=== PATIENT | male | born 1960 | race American Indian/Alaskan Native ===

== ENCOUNTER 2018-08-17 22:59 | Inpatient (IN) | payer OTHER, SELFPAY ==
[2018-08-17] MEDS ORDERED: ASPIRIN PO ONE (23:14)
[2018-08-17 23:42] LABS: Basophils # (Auto) 0.1 K/mm3 (0.0-0.1); Basophils % (Auto) 0.7 % (0.0-1.8); Eosinophils % (Auto) 0.1 % (0.0-4.3); Hematocrit 46.5 % (35.5-45.6); Hemoglobin 15.5 gm/dl (11.8-15.2); Lymphocytes # (Auto) 1.7 K/mm3 (1.2-5.4); Lymphocytes % (Auto) 13.2 % (13.4-35.0); Mean Corpuscular HGB Conc 33 % (32-34); Mean Corpuscular Volume 93 fl (84-94); Monocytes % (Auto) 7.3 % (0.0-7.3); Platelet Count 266 K/mm3 (140-440); Red Blood Count 4.98 M/mm3 (3.65-5.03)
[2018-08-18 00:04] LABS: Calcium 9.7 mg/dL (8.4-10.2)
--- NOTE | 2018-08-18 00:07 | Emergency Department Report ---
ED Chest Pain HPI - General Chief Complaint: Chest Pain Stated Complaint: CHEST PAIN Time Seen by Provider: 08/18/18 00:01 Source: patient Mode of arrival: Ambulatory Limitations: No Limitations - History of Present Illness Initial Comments: Patient is a 57-year-old male presents emergency with complaints of chest pain that started at 10 AM this morning. Patient states the pain is becoming worse. Patient states the pain is in his left chest and nonradiating. Patient complains of diaphoresis and nausea and vomiting. Patient states the pain is 10 out of 10. Patient states the pain is better with rest and worse with exertion. MD Complaint: chest pain -: Sudden Onset: during rest Pain Location: substernal, left chest Pain Radiation: none Severity: severe Severity scale (0 -10): 10 Quality: sharp Consistency: constant Improves With: rest Worsens With: exertion re: nausea, vomting, diaphoresis, dyspnea. denies: sense of impending doom Other Symptoms: denies: cough, fever, syncope, rash, acid taste in mouth, leg swelling, palpitations, burping Treatments Prior to Arrival: aspirin Aspirin use within the Past 7 Days: (1) Yes - Related Data On Oral Contraceptives: No Allergies Allergy/AdvReac Type Severity Reaction Status Date / Time No Known Allergies Allergy Unverified 08/17/18 23:14 Heart Score - HEART Score History: Moderately suspicious EKG: Non-specific Age: 45-65 Risk factors: No known risk factors Troponin: > 3x normal limit HEART Score: 5 ED Review of Systems ROS: Stated complaint: CHEST PAIN Other details as noted in HPI Constitutional: denies: chills, fever Eyes: denies: eye pain, eye discharge, vision change ENT: denies: ear pain, throat pain Respiratory: shortness of breath. denies: cough, wheezing Cardiovascular: chest pain. denies: palpitations Endocrine: no symptoms reported Gastrointestinal: nausea, vomiting. denies: abdominal pain, diarrhea Genitourinary: denies: urgency, dysuria Musculoskeletal: denies: back pain, joint swelling, arthralgia Skin: denies: rash, lesions Neurological: denies: headache, weakness, paresthesias Psychiatric: denies: anxiety, depression Hematological/Lymphatic: denies: easy bleeding, easy bruising ED Past Medical Hx - Past Medical History Previous Medical History?: Yes Hx Hypertension: Yes - Surgical History Past Surgical History?: No - Family History Family history: no significant - Social History Smoking Status: Never Smoker Substance Use Type: None ED Physical Exam - General Limitations: No Limitations General appearance: alert, in distress - Head Head exam: Present: atraumatic, normocephalic - Eye Eye exam: Present: normal appearance, PERRL Pupils: Present: normal accommodation - ENT ENT exam: Present: mucous membranes moist - Neck Neck exam: Present: normal inspection - Respiratory Respiratory exam: Present: normal lung sounds bilaterally. Absent: respiratory distress, chest wall tenderness - Cardiovascular Cardiovascular Exam: Present: regular rate, normal rhythm. Absent: systolic murmur, diastolic murmur, rubs, gallop - GI/Abdominal GI/Abdominal exam: Present: soft, normal bowel sounds - Rectal Rectal exam: Present: deferred - Extremities Exam Extremities exam: Present: normal inspection - Back Exam Back exam: Present: normal inspection - Neurological Exam Neurological exam: Present: alert, oriented X3 - Psychiatric Psychiatric exam: Present: normal affect, normal mood - Skin Skin exam: Present: warm, dry, intact, normal color. Absent: rash ED Course Vital Signs 08/17/18 08/17/18 08/18/18 23:10 23:58 00:00 Temperature 97.9 F Pulse Rate 103 H 104 H 95 H Respiratory 20 29 H 33 H Rate Blood Pressure 167/110 O2 Sat by Pulse 99 Oximetry 08/18/18 08/18/18 08/18/18 00:25 00:30 00:45 Temperature Pulse Rate 96 H 86 87 Respiratory 14 22 20 Rate Blood Pressure 149/106 133/87 O2 Sat by Pulse Oximetry 08/18/18 08/18/18 08/18/18 01:00 01:24 01:31 Temperature Pulse Rate 88 89 107 H Respiratory 15 31 H 20 Rate Blood Pressure 131/96 149/106 149/106 O2 Sat by Pulse Oximetry 08/18/18 08/18/18 08/18/18 01:45 02:00 02:15 Temperature Pulse Rate 89 89 91 H Respiratory 39 H 13 21 Rate Blood Pressure 160/106 151/102 133/88 O2 Sat by Pulse Oximetry - Reevaluation(s) Reevaluation #1: Initial evaluation. Patient appears to be very uncomfortable. Will contact cardiology nursing home admissions director. 08/18/18 00:06 Patient will be given morphine and Lopressor 5 mg. And IV was started on the patient and have a CTA of the chest done. 08/18/18 00:20 The patient was given morphine. Patient started throwing up coffee ground vomitus noted 08/18/18 00:25 Patient still complains of chest pain. Nitroglycerin paste will be placed on the patient's chest. Patient was given another 2 mg of morphine 08/18/18 01:41 no Change in patient's symptoms. Manager Bilingual will be updated 08/18/18 01:54 - Consultations Consultation #1: I discussed case with Dr. Kapoor, medical administrator nursing home admissions director. Dr. Kapoor states the EKG is not consistent with a STEMI. Discussed the positive troponins and Dr. Kapoor recommends medical management at this time. 08/18/18 00:[address] and resistant pain with Dr. Kapoor. Dr. Kapoor he states for us to activate the STEMI team to get the cath team here. STEMI team activated. Dr. Kapoor states to start the patient on nitro drip and prepare for cath and give the patient Plavix and heparin bolus 08/18/18 01:55 Consultation #2: Hospitals consulted for admission. Hospitalist to assume care patient after the cath. 08/18/18 02:15 NIKO score - Niko Score Age > 65: (0) No Aspirin use within the Past 7 Days: (1) Yes 3 or more CAD Risk Factors: (0) No 2 or more Angina events in past 24 hrs: (1) Yes Known CAD with more than 50% Stenosis: (0) No Elevated Cardiac Markers: (1) Yes ST Deviation Greater than 0.5mm: (0) No NIKO Score: 3 ED Medical Decision Making - Lab Data Result diagrams: 08/17/18 23:24 08/17/18 23:24 - EKG Data -: EKG Interpreted by Me EKG shows normal: sinus rhythm, axis, intervals, QRS complexes, ST-T waves (ST changes secondary to LVH and repol) Rate: normal - EKG Data Interpretation: LVH - Radiology Data Radiology results: report reviewed, image reviewed interpreted by me: No acute findings on chest x-ray PROCEDURE: XR CHEST 1V AP TECHNIQUE: Chest radiograph single view. HISTORY: Chest Pain COMPARISONS: None . FINDINGS: Heart: Normal. Mediastinum/Vessels: Normal. Lungs/Pleural space: Normal. Bony thorax: No acute osseous abnormality. Life support devices: None. IMPRESSION: No acute cardiopulmonary abnormality. - Medical Decision Making She is a 57-year-old male that presents emergency room with complaints of chest pain. Patient's chest pain intractable and difficult to manage. Patient given multiple doses of medications. Patient chest pain did not respond. Cardiology consulted early and immediately upon initial evaluation. Manager Bilingual states that the EKG does not show a STEMI. After multiple consultations with the living coach and multiple medications and the patient not improving, the medical administrator decided to activate the STEMI team. Patient's initial troponin was elevated. CT negative. Chest x-ray negative. Patient's other labs were unremarkable. - Differential Diagnosis chest pain. NSTEMI. STEMI. ACS. pe Critical Care Time: Yes Critical care attestation.: If time is entered above; I have spent that time in minutes in the direct care of this critically ill patient, excluding procedure time. Critical Care Time: 65 minutes ED Disposition Clinical Impression: Intractable pain, Elevated troponin Chest pain Qualifiers: Chest pain type: unspecified Qualified Code(s): R07.9 - Chest pain, unspecified STEMI (ST elevation myocardial infarction) Qualifiers: Involved coronary artery: unspecified coronary artery Qualified Code(s): I21.3 - ST elevation (STEMI) myocardial infarction of unspecified site Nausea & vomiting Qualifiers: Vomiting type: unspecified Vomiting Intractability: non-intractable Qualified Code(s): R11.2 - Nausea with vomiting, unspecified Disposition: 09 OP ADMIT IP TO THIS HOSP Is pt being admited?: Yes Does the pt Need Aspirin: No Condition: Critical Time of Disposition: 02:44
--- NOTE | 2018-08-18 00:12 | XRay Report ---
PROCEDURE: XR CHEST 1V AP TECHNIQUE: Chest radiograph single view. HISTORY: Chest Pain COMPARISONS: None . FINDINGS: Heart: Normal. Mediastinum/Vessels: Normal. Lungs/Pleural space: Normal. Bony thorax: No acute osseous abnormality. Life support devices: None. IMPRESSION: No acute cardiopulmonary abnormality. This document is electronically signed by Priti Stevens DO., August 18 2018 12:10:15 AM ET
[2018-08-18] MEDS ORDERED: MORPHINE IV ONE ×3 (00:14→01:51)
[2018-08-18] MEDS ORDERED: LOPRESSOR IV ONE ×2 (00:20→00:28)
[2018-08-18] MEDS ORDERED: ZOFRAN ONE (00:25)
[2018-08-18] MEDS ORDERED: ZOFRAN IV ONE (00:28)
[2018-08-18] MEDS ORDERED: NITRO-BID 2% TP ONE ×2 (01:45→01:49)
--- NOTE | 2018-08-18 01:51 | Cat Scan Report ---
CT ANGIO CHEST CLINICAL INDICATION: Male, 57 years of age. cp. sob COMPARISON: Chest x-ray from yesterday. TECHNIQUE: Contiguous axial images were obtained. This CT exam was performed using one or more of th e following dose reduction techniques: automated exposure control, adjustment of the mA and/or kV acc ording to patient size, or use of iterative reconstruction technique. Additional sagittal and coronal reformatted images were obtained. IV contrast administered per institution protocol. Images are subm itted for interpretation. FINDINGS: Heart upper limits normal in size. Thoracic aorta normal in caliber. Thoracic aorta not wel l opacified for evaluation of dissection. No evidence of rupture. No pulmonary embolus. No pathologic ally enlarged intrathoracic or axillary lymph nodes. Mild subsegmental atelectasis at the dependent portions of the lungs. No dense airspace consolidation or pleural effusion. Along the inferior margin of the right minor fissure. There is a tiny subpleura l nodule measuring 9 x 4 mm in axial dimension (series 2, image 82). Visualized upper abdomen is [place] sly unremarkable. Bony thorax is grossly intact. IMPRESSION: 1. No pulmonary embolus. 2. Small subpleural nodule along the inferior margin of the right minor fissure. This may be postinfl ammatory. Follow-up chest CT in 3 months suggested to ensure stability. 3. No dense airspace consolidation or pleural effusion otherwise. This document is electronically signed by Hilario Contreras DO., August 18 2018 01:49:30 AM ET
[2018-08-18] MEDS ORDERED: TRIDIL DRIP 50MG/250ML 50 MG/250 ML BOTTLE ONE (01:59)
[2018-08-18 02:18] LABS: Creatine Kinase MB 41.8 ng/mL (0.0-4.0)
[2018-08-18] MEDS ORDERED: HEPARIN/NS 5000 UNIT/500ML(CATH LAB) 1,000 ML IR ONE (02:35)
[2018-08-18] MEDS ORDERED: CALAN ONE (02:36)
[2018-08-18] MEDS ORDERED: XYLOCAINE 2% INFILTRATI ONE (02:36)
[2018-08-18] MEDS ORDERED: NITROGLYCERIN SYRINGE 3 ML ONE (02:36)
[2018-08-18] MEDS ORDERED: NACL 0.9% 500 ML 500 ML ONE (02:41)
[2018-08-18] MEDS ORDERED: VERSED ONE (02:42)
[2018-08-18] MEDS ORDERED: SUBLIMAZE ONE (02:42)
[2018-08-18] MEDS: HEPARIN 10,000 UNITS/10 ML ONE ×2 (02:45→02:55)
[2018-08-18] MEDS ORDERED: TRIDIL DRIP 50MG/250ML 50 MG/250 ML BOTTLE IV SCH (03:00)
[2018-08-18 03:04] LABS: INR 1.04 (0.87-1.13)
[2018-08-18 03:05] LABS: Partial Thromboplastin Time 30.6 Sec. (24.2-36.6)
[2018-08-18] MEDS ORDERED: SODIUM CHLORIDE FLUSH SYRINGE 10 ML IV PRN (03:36)
[2018-08-18] MEDS ORDERED: ULTRAM PO PRN (03:36)
[2018-08-18] MEDS ORDERED: MORPHINE IV PRN (03:36)
[2018-08-18] MEDS ORDERED: TYLENOL PO PRN (03:36)
[2018-08-18] MEDS ORDERED: ZOFRAN IV PRN (03:36)
--- NOTE | 2018-08-18 03:38 | History and Physical Report ---
History of Present Illness Date of examination: 08/18/18 History of present illness: 57-year-old man with no medical history comes to the emergency room with complaints of chest pain located in the chest which she describes as sharp pain, constant, intensity 7/10, no radiation. He is taking Tums for the pain without any relief. His symptoms worsen so he came to the emergency room for evaluation. Complains of nausea and vomiting, no diaphoresis or palpitation, shortness of breath Review of systems Constitutional: no weight loss, chills, fever Ears, eyes, nose, mouth and throat: no nasal congestion, no nasal discharge, no sinus pressure, no vision change, no red eye. Neck: No neck pain or rigidity. Cardiovascular: no palpitations, chest pain Respiratory: no cough, shortness of breath Gastrointestinal: no hematochezia, abdominal pain Genitourinary : no frequency , no hematuria Musculoskeletal: no joint swelling or muscle ache Integumentary: no rash, no pruritis Neurological: no parathesias, no focal weakness Endocrine: no cold or heat intolerance, no polyuria or polydipsia Hematologic/Lymphatic: no easy bruising, no easy bleeding, no gland swelling Allergic/Immunologic: no urticaria, no angioedema. PAST MEDICAL HISTORY: None PAST SURGICAL HISTORY: None SOCIAL HISTORY: Quit alcohol, drugs, tobacco FAMILY HISTORY: Hypertension, CAD Medications and Allergies Allergies Allergy/AdvReac Type Severity Reaction Status Date / Time No Known Allergies Allergy Unverified 08/17/18 23:14 Active Meds: Active Medications Nitroglycerin/Dextrose (Tridil Drip 50mg/250ml) 50 mg in 250 mls @ 3 mls/hr IV TITR EDIN; Protocol Exam - Physical Exam Narrative exam: General Apperance: The patient lying in bed, breathing comfortable HEENT: Normocephalic, atraumatic. Pupils equally round and reactive to light, EOMI, no sclericterus or JVD or thyromegaly or nodule. , no carotid bruit, mucous membranes moist, no exudate or erythema Heart: S1-S2, regular is rhythm Lungs: Clear to auscultation bilaterally, breathing comfortable Abdomen: Positive bowel sounds, soft, nontender, nondistended, no organomegaly Extremities: No edema cyanosis clubbing Skin: no rash, nodule, warm and dry Neuro: cranial nerves 2-12 intact, speech is fluent, motor/sensory intact - Constitutional Vitals: Temp Pulse Resp BP Pulse Ox 97.9 F 91 H 21 133/88 99 08/17/18 23:10 08/18/18 02:15 08/18/18 02:15 08/18/18 02:15 08/17/18 23:10 Results - Labs CBC & Chem 7: 08/17/18 23:24 08/17/18 23:24 Labs: Abnormal lab results 08/17/18 08/17/18 08/18/18 Range/Units 23:24 23:24 01:39 WBC 13.2 H (4.5-11.0) K/mm3 Hgb 15.5 H (11.8-15.2) gm/dl Hct 46.5 H (35.5-45.6) % RDW 13.0 L (13.2-15.2) % Lymph % (Auto) 13.2 L (13.4-35.0) % [place] # 1.0 H (0.0-0.8) K/mm3 Seg Neutrophils % 78.7 H (40.0-70.0) % Seg Neutrophils # 10.4 H (1.8-7.7) K/mm3 Glucose 127 H (75-100) mg/dL Total Creatine Kinase 551 H (55-170) units/L CK-MB (CK-2) 41.8 H (0.0-4.0) ng/mL CK-MB (CK-2) Rel Index 7.5 H (0-4) Troponin T 0.455 H* 0.504 H* (0.00-0.029) ng/mL NT-Pro-B Natriuret Pep (0-900) pg/mL 08/18/18 Range/Units 01:43 WBC (4.5-11.0) K/mm3 Hgb (11.8-15.2) gm/dl Hct (35.5-45.6) % RDW (13.2-15.2) % Lymph % (Auto) (13.4-35.0) % [place] # (0.0-0.8) K/mm3 Seg Neutrophils % (40.0-70.0) % Seg Neutrophils # (1.8-7.7) K/mm3 Glucose (75-100) mg/dL Total Creatine Kinase (55-170) units/L CK-MB (CK-2) (0.0-4.0) ng/mL CK-MB (CK-2) Rel Index (0-4) Troponin T (0.00-0.029) ng/mL NT-Pro-B Natriuret Pep 1755 H (0-900) pg/mL - Imaging and Cardiology EKG: image reviewed Chest x-ray: image reviewed CT scan - chest: report reviewed Assessment and Plan Assessment STMI Plan Admit medicine Status post crime lab analyst, stent placed Continue cardiac medicine per Cardiology DVT prophylaxis, IV morphine
--- NOTE | 2018-08-18 03:44 | Consultation ---
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 Left heart cath revealed left main patent LAD mid 99% with NIKO 2 flow down to 1 ostial 80% diagonal 2 and 3 patent circumflex patent obtuse marginal 1 and obtuse marginal 2 patent RCA patent with moderate LV dysfunction and anterior wall hypokinesis EF 35-40% PCI of the LAD with a drug-eluting xience 3.0 x 33 mm postdilated with 3 5 x 15 mm 2 intravascular sounds revealed excellent result was stent was well opposed and expanded. Patient was chest pain-free at the case. Patient denies any fever or chills melena had some shortness of breath syncope or palpitations as constant pain Past History Past Medical History: denies: No medical history Past Surgical History: denies: No surgical history Social history: denies: no significant social history Family history: CAD Medications and Allergies Allergies Allergy/AdvReac Type Severity Reaction Status Date / Time No Known Allergies Allergy Unverified 08/17/18 23:14 Active Meds: Active Medications Acetaminophen (Tylenol) 650 mg PO Q4H PRN PRN Reason: Pain MILD(1-3)/Fever >100.5/BROWN Nitroglycerin/Dextrose (Tridil Drip 50mg/250ml) 50 mg in 250 mls @ 3 mls/hr IV TITR EDIN; Protocol Morphine Sulfate (Morphine) 2 mg IV Q4H PRN PRN Reason: Pain, Moderate (4-6) Ondansetron HCl (Zofran) 4 mg IV Q4H PRN PRN Reason: Nausea And Vomiting Sodium Chloride (Sodium Chloride Flush Syringe 10 Ml) 10 ml IV BID EDIN Sodium Chloride (Sodium Chloride Flush Syringe 10 Ml) 10 ml IV PRN PRN PRN Reason: LINE FLUSH Review of Systems All systems: negative (as per hpi) Physical Examination Vital Signs Temp Pulse Resp BP Pulse Ox 97.9 F 103 H 20 167/110 99 08/17/18 23:10 08/17/18 23:10 08/17/18 23:10 08/17/18 23:10 08/17/18 23:10 General appearance: no acute distress, well-nourished HEENT: Positive: PERRL, Mucus Membranes Moist Neck: Positive: neck supple, trachea midline Cardiac: Positive: Reg Rate and Rhythm, S1/S2. Negative: Audible Murmur Lungs: Positive: clear to auscultation, Normal Breath Sounds Neuro: Positive: Grossly Intact Abdomen: Positive: Soft, Active Bowel Sounds. Negative: Tender, Distended Male genitourinary: Positive: normal Skin: Positive: Clear Incision: Cardiac Cath Site (no hematoma or bleeding) Musculoskeletal: No Pain, Normal Range of Motion Extremities: Present: normal. Absent: edema Results 08/17/18 23:24 08/17/18 23:24 Cardiac Enzymes 08/18/18 Range/Units 01:39 CK-MB (CK-2) 41.8 H (0.0-4.0) ng/mL Coagulation 08/18/18 Range/Units 02:14 PT 14.2 (12.2-14.9) Sec. INR 1.04 (0.87-1.13) APTT 30.6 (24.2-36.6) Sec. CBC 08/17/18 Range/Units 23:24 WBC 13.2 H (4.5-11.0) K/mm3 RBC 4.98 (3.65-5.03) M/mm3 Hgb 15.5 H (11.8-15.2) gm/dl Hct 46.5 H (35.5-45.6) % Plt Count 266 (140-440) K/mm3 Lymph # 1.7 (1.2-5.4) K/mm3 [place] # 1.0 H (0.0-0.8) K/mm3 Eos # 0.0 (0.0-0.4) K/mm3 Baso # 0.1 (0.0-0.1) K/mm3 Comprehensive Metabolic Panel 08/17/18 Range/Units 23:24 Sodium 139 (137-145) mmol/L Potassium 4.4 (3.6-5.0) mmol/L Chloride 98.1 (98-107) mmol/L Carbon Dioxide 27 (22-30) mmol/L BUN 11 (9-20) mg/dL Creatinine 1.4 (0.8-1.5) mg/dL Glucose 127 H (75-100) mg/dL Calcium 9.7 (8.4-10.2) mg/dL - Imaging and Cardiology Cardiac cath: report reviewed (Left heart cath revealed left main patent LAD mid 99% with NIKO 2 flow down to 1 ostial 80% diagonal 2 and 3 patent circumflex patent obtuse marginal 1 and obtuse marginal 2 patent RCA patent with moderate LV dysfunction and anterior wall hypokinesis EF 35-40% PCI of the LAD with a drug-eluting xience 3.0 x 33 mm postdilated with 3 5 x 15 mm 2 intravascular sounds revealed excellent result was stent was well opposed and expanded. ) EKG interpretations - Telemetry EKG Rhythm: Sinus Rhythm (nsr mild anterior wall elevation no reciprocal changes) Assessment and Plan Patient has successful PCI of the LAD late presentation chest pain resulting in anterior wall hypokinesis patient will be on dual antiplatelet agent high-dose statin will start low-dose beta fernando follow-up on echocardiogram was PCI care discussed this in detail with the patient patient's family guarded prognosis - Patient Problems (1) Acute systolic CHF (congestive heart failure), NYHA class 3 Current Visit: Yes Status: Acute (2) Acute respiratory failure Current Visit: Yes Status: Acute Qualifiers: Respiratory failure complication: hypoxia Qualified Code(s): J96.01 - Acute respiratory failure with hypoxia (3) Hyperlipemia, mixed Current Visit: Yes Status: Chronic (4) NSTEMI (non-ST elevation myocardial infarction) Current Visit: Yes Status: Acute
[2018-08-18] MEDS ORDERED: NACL 0.9% 1000 ML 1,000 ML IV SCH (04:00)
[2018-08-18 04:49] LABS: Chol/HDL Ratio 3.48 %
--- NOTE | 2018-08-18 04:52 | Cardiac Catherization Report ---
LEFT HEART CATHETERIZATION/PERCUTANEOUS CORONARY INTERVENTION REPORT WITH INTRAVASCULAR ULTRASOUND CLINICAL INFORMATION: This is a 57-year-old -[place] gentleman with family history of premature CAD. He has been having continued chest pain since 2 o'clock this afternoon, presents to the ED around midnight. Initial EKG did not reveal an acute RI, but persistent chest pain with abnormal troponin despite medical therapy, was brought to the solder making laborer for acute coronary syndrome. The patient was done with moderate sedation, 1 mg Versed, 50 mcg of fentanyl. Sedation start time was 2:42 a.m., finished at 3:17 a.m. Thirty one minutes of supervised sedation. Procedure was performed via the right radial artery, sterile technique, local anesthesia, 6-Japanese radial sheath inserted. Left system engaged with a JL3.5 catheter. Left main is large, patent, and bifurcates to large caliber LAD, proximal is patent, mid diffuse disease with 99% with NIKO 2 flow. Diagonal 1 ostial 80%, small diagonal 2 patent, diagonal 3 patent. Circumflex is a large caliber vessel that is patent. OM1 is a [id number] caliber vessel, it is patent. OM2 is a large caliber vessel, it is patent with upper and lower branch that is patent. RCA engaged with JR4 is a large caliber vessel. It is patent with mild luminal irregularities. Dominant vessel PDA and PLV are medium caliber vessels that are patent. LV gram done in AZERBAIJANI and HENDRIX view shows moderate LV dysfunction with anterior wall hypokinesis. LVEDP of 30-35 mmHg, LV is 130/9. Aortic is 138/83. No gradient across the aortic valve on pullback. 5-Japanese catheters were all taken over guidewire. So, we went for percutaneous coronary intervention with intravascular ultrasound. 1. LAD engaged, less than EBU 3.5 guiding catheter. 2. Was able to cross the lesion with a short [place]on wire with adequate ACT. 3. Predilated with 2.5 x 12 balloon x 3 inflations restored NIKO 3 flow. 4. Intravascular ultrasound showed diffuse disease with distal reference vessel 3.0 x 3.3 and proximal 3.5 x 3.3. 5. Stent to the mid LAD across the diagonal 1 and diagonal 2 with drug-eluting Xience 3.0 x 33 inflated at 15 atmospheres. 6. Post-dilated with a 3.5 x 15 noncompliant balloon in the distal to proximal portion of the stent. 7. Excellent angiographic result. Repeat IVUS showed stent was well opposed and expanded, just diffuse disease in the mid LAD. 8. Remove coronary wire and IVUS. Multiple angiograms show excellent angiographic result. No dissection or perforation and NIKO 3 flow restored. The patient's chest pain has markedly improved. 9. A 6-Japanese guiding catheter taken over guidewire, 6-Japanese radial sheath was discontinued. Radial band applied. No hematoma, no bleeding. SUMMARY: 1. Successful PCI of the LAD with a drug-eluting Xience Twyla at 3.0 x 33 mm; post-dilated 3.5 x 15. Intravascular ultrasound showed good stent that was well opposed and expanded. 2. Left main patent. Rest of the LAD from mid to distal is patent. Circumflex is a large caliber vessel that is patent. OM1 patent, OM2 patent, RCA large caliber vessel that is patent. 3. Mild LV dysfunction, anterior wall hypokinesis. We will continue post-PCI care, aspirin, Plavix, statin, low dose beta fernando, and discuss this in detail with the patient and patient's family. JOB# [id number] GERARDO/JAMESON
[2018-08-18] MEDS: SODIUM CHLORIDE FLUSH SYRINGE 10 ML IV SCH ×2 (09:18→21:01)
[2018-08-18] MEDS: LOVENOX SUB-Q SCH (09:19)
[2018-08-18] MEDS: LOPRESSOR PO SCH ×2 (09:19→21:01)
[2018-08-18] MEDS: BABY ASPIRIN PO SCH (09:19)
--- NOTE | 2018-08-18 11:50 | Progress Note ---
Assessment and Plan pt radial band is off, no chest pain , aneuysmal ekg in anterior wall, noted elevated trop secondary to late presentation, with bp elevated start losartan and pt may go to telemetry - Patient Problems (1) Acute systolic CHF (congestive heart failure), NYHA class 3 Current Visit: Yes Status: Acute (2) Acute respiratory failure Current Visit: Yes Status: Acute Qualifiers: Respiratory failure complication: hypoxia Qualified Code(s): J96.01 - Acute respiratory failure with hypoxia (3) Hyperlipemia, mixed Current Visit: Yes Status: Chronic (4) NSTEMI (non-ST elevation myocardial infarction) Current Visit: Yes Status: Acute Subjective Date of service: 08/18/18 Principal diagnosis: nstemi Interval history: pt is chest pain free Objective Vital Signs Temp Pulse Resp BP Pulse Ox 08/18/18 11:01 83 19 113/78 99 08/18/18 10:45 83 20 123/88 99 08/18/18 10:30 91 H 19 136/96 100 08/18/18 10:15 102 H 14 147/97 100 08/18/18 10:00 106 H 19 147/97 100 08/18/18 09:59 100 08/18/18 09:45 99 H 19 139/90 100 08/18/18 09:30 100 H 20 130/88 100 08/18/18 09:19 100 H 136/88 08/18/18 09:15 102 H 20 136/88 100 08/18/18 09:00 100 H 21 141/95 100 08/18/18 08:45 94 H 20 143/95 100 08/18/18 08:30 97 H 19 142/95 100 08/18/18 08:15 101 H 11 L 142/97 100 08/18/18 08:00 98.2 F 99 H 12 142/97 100 08/18/18 07:45 98 H 20 146/95 100 08/18/18 07:30 99 H 13 148/94 100 08/18/18 07:15 97 H 20 144/96 100 08/18/18 07:00 99 H 22 149/98 99 08/18/18 06:45 98 H 21 149/98 100 08/18/18 06:30 97 H 22 148/98 100 08/18/18 06:15 99 H 21 145/100 100 08/18/18 06:00 98 H 21 149/97 100 08/18/18 05:45 101 H 20 148/98 100 08/18/18 05:30 98 H 19 152/98 100 08/18/18 05:15 97 H 18 150/98 100 08/18/18 05:00 94 H 21 146/97 100 08/18/18 04:51 95 H 15 100 08/18/18 04:30 99.7 F H 08/18/18 02:15 91 H 21 133/88 08/18/18 02:00 89 13 151/102 08/18/18 01:45 89 39 H 160/106 08/18/18 01:31 107 H 20 149/106 08/18/18 01:24 89 31 H 149/106 08/18/18 01:00 88 15 131/96 08/18/18 00:45 87 20 133/87 08/18/18 00:30 86 22 149/106 08/18/18 00:25 96 H 14 08/18/18 00:00 95 H 33 H 08/17/18 23:58 104 H 29 H 08/17/18 23:10 97.9 F 103 H 20 167/110 99 - Physical Examination General: Appears Well HEENT: Positive: PERRL, Mucus Membranes Moist Neck: Positive: neck supple, trachea midline Cardiac: Positive: Reg Rate and Rhythm Lungs: Positive: clear to auscultation Neuro: Positive: Grossly Intact Abdomen: Positive: Soft, Active Bowel Sounds. Negative: Tender, Distended Skin: Positive: Clear Incision: Cardiac Cath Site (no hematoma or bleeding) Musculoskeletal: No Pain, Normal Range of Motion Extremities: Present: normal. Absent: edema - Labs and Meds Cardiac Enzymes 08/18/18 Range/Units 01:39 CK-MB (CK-2) 41.8 H (0.0-4.0) ng/mL Coagulation 08/18/18 Range/Units 02:14 PT 14.2 (12.2-14.9) Sec. INR 1.04 (0.87-1.13) APTT 30.6 (24.2-36.6) Sec. Lipids 08/17/18 Range/Units 23:24 Triglycerides 74 (2-149) mg/dL Cholesterol 209 H (50-199) mg/dL HDL Cholesterol 60 H (40-59) mg/dL Cholesterol/HDL Ratio 3.48 % CBC 08/17/18 Range/Units 23:24 WBC 13.2 H (4.5-11.0) K/mm3 RBC 4.98 (3.65-5.03) M/mm3 Hgb 15.5 H (11.8-15.2) gm/dl Hct 46.5 H (35.5-45.6) % Plt Count 266 (140-440) K/mm3 Lymph # 1.7 (1.2-5.4) K/mm3 [place] # 1.0 H (0.0-0.8) K/mm3 Eos # 0.0 (0.0-0.4) K/mm3 Baso # 0.1 (0.0-0.1) K/mm3 Comprehensive Metabolic Panel 08/17/18 Range/Units 23:24 Sodium 139 (137-145) mmol/L Potassium 4.4 (3.6-5.0) mmol/L Chloride 98.1 (98-107) mmol/L Carbon Dioxide 27 (22-30) mmol/L BUN 11 (9-20) mg/dL Creatinine 1.4 (0.8-1.5) mg/dL Glucose 127 H (75-100) mg/dL Calcium 9.7 (8.4-10.2) mg/dL - Imaging and Cardiology EKG: image reviewed Cardiac cath: report reviewed (Left heart cath revealed left main patent LAD mid 99% with NIKO 2 flow down to 1 ostial 80% diagonal 2 and 3 patent circumflex patent obtuse marginal 1 and obtuse marginal 2 patent RCA patent with moderate LV dysfunction and anterior wall hypokinesis EF 35-40% PCI of the LAD with a drug-eluting xience 3.0 x 33 mm postdilated with 3 5 x 15 mm 2 intravascular sounds revealed excellent result was stent was well opposed and expanded. ) - Telemetry EKG Rhythm: Sinus Rhythm - EKG Sinus rhythms and dysrhythmias: sinus rhythm (08/18/2018 nsr aneursymal anterior wall mi )
[2018-08-18] MEDS: COZAAR PO SCH (11:52)
--- NOTE | 2018-08-18 12:33 | Event Note ---
Date: 08/18/18 Chart reviewed. We'll continue the plan as outlined in the H&P. I discussed case with Dr. Kapoor. Total time 25 minutes with greater than 50% spent with correlation of care.
--- NOTE | 2018-08-18 12:43 | Consultation ---
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 Left heart cath revealed left main patent LAD mid 99% with NIKO 2 flow down to 1 ostial 80% diagonal 2 and 3 patent circumflex patent obtuse marginal 1 and obtuse marginal 2 patent RCA patent with moderate LV dysfunction and anterior wall hypokinesis EF 35-40% PCI of the LAD with a drug-eluting xience 3.0 x 33 mm postdilated with 3 5 x 15 mm 2 intravascular sounds revealed excellent result was stent was well opposed and expanded. Patient was chest pain-free at the case. Patient denies any fever or chills melena had some shortness of breath syncope or palpitations as constant pain REVIEW OF SYSTEMS Review of systems Constitutional: no weight loss, chills, fever Ears, eyes, nose, mouth and throat: no nasal congestion, no nasal discharge, no sinus pressure, no vision change, no red eye. Neck: No neck pain or rigidity. Cardiovascular: no palpitations, chest pain Respiratory: no cough, shortness of breath Gastrointestinal: no hematochezia, abdominal pain Genitourinary : no frequency , no hematuria Musculoskeletal: no joint swelling or muscle ache Integumentary: no rash, no pruritis Neurological: no parathesias, no focal weakness Endocrine: no cold or heat intolerance, no polyuria or polydipsia Hematologic/Lymphatic: no easy bruising, no easy bleeding, no gland swelling Allergic/Immunologic: no urticaria, no angioedema. Past History Past Medical History: denies: No medical history Past Surgical History: denies: No surgical history Social history: denies: no significant social history Family history: CAD Medications and Allergies Allergies Allergy/AdvReac Type Severity Reaction Status Date / Time No Known Allergies Allergy Unverified 08/17/18 23:14 Home Medications Medication Instructions Recorded Confirmed Last Taken Type Aspirin [Aspirin BABY CHEW TAB] 81 mg PO QDAY #30 tab.chew 08/19/18 Unknown Rx AtorvaSTATin [Lipitor] 80 mg PO QHS #30 tablet 08/19/18 Unknown Rx Clopidogrel [Plavix] 75 mg PO QDAY #30 tablet 08/19/18 Unknown Rx Losartan [Cozaar] 25 mg PO QDAY #30 tablet 08/19/18 Unknown Rx Metoprolol [Lopressor TAB] 50 mg PO BID #60 tablet 08/19/18 Unknown Rx Active Meds: Active Medications Acetaminophen (Tylenol) 650 mg PO Q4H PRN PRN Reason: Pain MILD(1-3)/Fever >100.5/BROWN Aspirin (Baby Aspirin) 81 mg PO QDAY [facility] Last Admin: 08/18/18 09:19 Dose: 81 mg Documented by: Atorvastatin Calcium (Lipitor) 80 mg PO QHS [facility] Clopidogrel Bisulfate (Plavix) 75 mg PO QDAY [facility] Enoxaparin Sodium (Lovenox) 40 mg SUB-Q QDAY@1000 EDIN Last Admin: 08/18/18 09:19 Dose: 40 mg Documented by: Nitroglycerin/Dextrose (Tridil Drip 50mg/250ml) 50 mg in 250 mls @ 3 mls/hr IV TITR [facility]; Protocol Sodium Chloride (Nacl 0.9% 1000 Ml) 1,000 mls @ 75 mls/hr IV DIRECT EDIN Stop: 08/18/18 13:59 Losartan Potassium (Cozaar) 50 mg PO QDAY [facility] Last Admin: 08/18/18 11:52 Dose: 50 mg Documented by: Metoprolol Tartrate (Lopressor) 50 mg PO BID [facility] Last Admin: 08/18/18 09:19 Dose: 50 mg Documented by: Morphine Sulfate (Morphine) 2 mg IV Q4H PRN PRN Reason: Pain, Moderate (4-6) Ondansetron HCl (Zofran) 4 mg IV Q4H PRN PRN Reason: Nausea And Vomiting Last Admin: 08/18/18 04:42 Dose: 4 mg Documented by: Sodium Chloride (Sodium Chloride Flush Syringe 10 Ml) 10 ml IV BID [facility] Last Admin: 08/18/18 09:18 Dose: 10 ml Documented by: Sodium Chloride (Sodium Chloride Flush Syringe 10 Ml) 10 ml IV PRN PRN PRN Reason: LINE FLUSH Tramadol HCl (Ultram) 50 mg PO Q4H PRN PRN Reason: Pain, Mild (1-3) Physical Examination Vital signs: Vital Signs Temp Pulse Resp BP Pulse Ox 97.9 F 103 H 20 167/110 99 08/17/18 23:10 08/17/18 23:10 08/17/18 23:10 08/17/18 23:10 08/17/18 23:10 General appearance: no acute distress, well-nourished, on RA HEENT: Positive: PERRL, Mucus Membranes Moist Neck: Positive: neck supple, trachea midline Cardiac: Positive: Reg Rate and Rhythm, S1/S2. Negative: Audible Murmur Lungs: Positive: clear to auscultation, Normal Breath Sounds Neuro: Positive: Grossly Intact Abdomen: Positive: Soft, Active Bowel Sounds. Negative: Tender, Distended Male genitourinary: Positive: normal Skin: Positive: Clear Incision: Cardiac Cath Site (no hematoma or bleeding) Musculoskeletal: No Pain, Normal Range of Motion Extremities: Present: normal. Absent: edema Results - Laboratory Findings CBC and BMP: 08/19/18 05:35 08/19/18 05:35 PT/INR, D-dimer PT 14.2 Sec. (12.2-14.9) 08/18/18 02:14 INR 1.04 (0.87-1.13) 08/18/18 02:14 Abnormal lab findings: Abnormal Labs 08/17/18 08/17/18 08/18/18 23:24 23:24 01:39 WBC 13.2 H Hgb 15.5 H Hct 46.5 H RDW 13.0 L Lymph % (Auto) 13.2 L [place] # 1.0 H Seg Neutrophils % 78.7 H Seg Neutrophils # 10.4 H Glucose 127 H Total Creatine Kinase 551 H CK-MB (CK-2) 41.8 H CK-MB (CK-2) Rel Index 7.5 H Troponin T 0.455 H* 0.504 H* NT-Pro-B Natriuret Pep Cholesterol 209 H LDL Cholesterol Direct 140 H HDL Cholesterol 60 H 08/18/18 08/18/18 01:43 05:24 WBC Hgb Hct RDW Lymph % (Auto) [place] # Seg Neutrophils % Seg Neutrophils # Glucose Total Creatine Kinase CK-MB (CK-2) CK-MB (CK-2) Rel Index Troponin T 19.640 H* D NT-Pro-B Natriuret Pep 1755 H Cholesterol LDL Cholesterol Direct HDL Cholesterol Assessment and Plan NSTEMI s/p PCI Tobacco use disorder Acute systolic heart failure, NYHA class III. Hyperlipidemia. -Cardioprotective measures -Antiplatelet therapy -Heart failure measures -Statin therapy -Cardiac diet, ambulate -Smoking cessation counselling done at the bedside OK to transfer telemetry
[2018-08-18] MEDS ORDERED: HEPARIN 10,000 UNITS/10 ML ONE (16:50)
[2018-08-18] MEDS ORDERED: PLAVIX ONE (16:50)
[2018-08-19 06:46] LABS: Basophils % (Auto) 0.2 % (0.0-1.8); Eosinophils # (Auto) 0.1 K/mm3 (0.0-0.4); Eosinophils % (Auto) 0.4 % (0.0-4.3); Hematocrit 44.1 % (35.5-45.6); Hemoglobin 14.8 gm/dl (11.8-15.2); Lymphocytes # (Auto) 2.6 K/mm3 (1.2-5.4); Lymphocytes % (Auto) 21.6 % (13.4-35.0); Mean Corpuscular HGB Conc 34 % (32-34); Mean Corpuscular Volume 93 fl (84-94); Monocytes # (Auto) 1.3 K/mm3 (0.0-0.8); Monocytes % (Auto) 11.4 % (0.0-7.3); Platelet Count 226 K/mm3 (140-440); Red Blood Count 4.74 M/mm3 (3.65-5.03); Red Cell Distribution Width 13.5 % (13.2-15.2)
[2018-08-19 07:20] LABS: Creatine Kinase MB 49.4 ng/mL (0.0-4.0)
[2018-08-19 07:26] LABS: Albumin 3.8 g/dL (3.9-5)
[2018-08-19] MEDS: LOVENOX SUB-Q SCH (09:58)
[2018-08-19] MEDS: COZAAR PO SCH (09:59)
[2018-08-19] MEDS: LOPRESSOR PO SCH (09:59)
[2018-08-19] MEDS: SODIUM CHLORIDE FLUSH SYRINGE 10 ML IV SCH (09:59)
[2018-08-19] MEDS: BABY ASPIRIN PO SCH (09:59)
[2018-08-19] MEDS ORDERED: PLAVIX PO SCH (10:00)
--- NOTE | 2018-08-19 10:15 | Progress Note ---
Assessment and Plan Assessment and plan: Acute hypoxemic respiratory failure. Continue O2 for supportive care. NSTEMI s/p PCI. Patient was significantly elevated troponin 0.45-->0.504--> 19.64-->3.99. Left heart cath revealed left main patent LAD mid 99% with NIKO 2 flow down to 1 ostial 80% diagonal 2 and 3 patent circumflex patent obtuse marginal 1 and obtuse marginal 2 patent RCA patent with moderate LV dysfunction and anterior wall hypokinesis EF 35-40% PCI of the LAD with a drug-eluting xience 3.0 x 33 mm postdilated with 3 5 x 15 mm 2 intravascular sounds revealed excellent result. Continue aspirin, Plavix, Lipitor and beta fernando. Acute systolic heart failure, NYHA class III. Hyperlipidemia. Continue statins. History Interval history: No new issues overnight. Patient denies chest pain. Hospitalist Physical - Constitutional Vitals: Temp Pulse Resp BP Pulse Ox 99.2 F 90 20 96/58 94 08/19/18 08:11 08/19/18 05:53 08/19/18 08:11 08/19/18 08:11 08/19/18 04:17 General appearance: Present: no acute distress, well-nourished - EENT Eyes: Present: PERRL, EOM intact ENT: hearing intact, clear oral mucosa, dentition normal - Neck Neck: Present: supple, normal ROM - Respiratory Respiratory effort: normal Respiratory: bilateral: CTA - Cardiovascular Rhythm: regular Heart Sounds: Present: S1 & S2. Absent: gallop, rub - Extremities Extremities: no ischemia, No edema, Full ROM - Abdominal General gastrointestinal: soft, non-tender, non-distended, normal bowel sounds - Integumentary Integumentary: Present: clear, warm, dry - Neurologic Neurologic: CNII-XII intact, moves all extremities Results - Labs CBC & Chem 7: 08/19/18 05:35 08/19/18 05:35 Labs: Laboratory Last Values WBC 11.8 K/mm3 (4.5-11.0) H 08/19/18 05:35 RBC 4.74 M/mm3 (3.65-5.03) 08/19/18 05:35 Hgb 14.8 gm/dl (11.8-15.2) 08/19/18 05:35 Hct 44.1 % (35.5-45.6) 08/19/18 05:35 MCV 93 fl (84-94) 08/19/18 05:35 MCH 31 pg (28-32) 08/19/18 05:35 MCHC 34 % (32-34) 08/19/18 05:35 RDW 13.5 % (13.2-15.2) 08/19/18 05:35 Plt Count 226 K/mm3 (140-440) 08/19/18 05:35 Lymph % (Auto) 21.6 % (13.4-35.0) 08/19/18 05:35 [place] % (Auto) 11.4 % (0.0-7.3) H 08/19/18 05:35 Eos % (Auto) 0.4 % (0.0-4.3) 08/19/18 05:35 Baso % (Auto) 0.2 % (0.0-1.8) 08/19/18 05:35 Lymph # 2.6 K/mm3 (1.2-5.4) 08/19/18 05:35 [place] # 1.3 K/mm3 (0.0-0.8) H 08/19/18 05:35 Eos # 0.1 K/mm3 (0.0-0.4) 08/19/18 05:35 Baso # 0.0 K/mm3 (0.0-0.1) 08/19/18 05:35 Seg Neutrophils % 66.4 % (40.0-70.0) 08/19/18 05:35 Seg Neutrophils # 7.8 K/mm3 (1.8-7.7) H 08/19/18 05:35 PT 14.2 Sec. (12.2-14.9) 08/18/18 02:14 INR 1.04 (0.87-1.13) 08/18/18 02:14 APTT 30.6 Sec. (24.2-36.6) 08/18/18 02:14 Sodium 139 mmol/L (137-145) 08/19/18 05:35 Potassium 4.3 mmol/L (3.6-5.0) 08/19/18 05:35 Chloride 99.6 mmol/L (98-107) 08/19/18 05:35 Carbon Dioxide 28 mmol/L (22-30) 08/19/18 05:35 Anion Gap 16 mmol/L 08/19/18 05:35 BUN 15 mg/dL (9-20) 08/19/18 05:35 Creatinine 1.6 mg/dL (0.8-1.5) H 08/19/18 05:35 Estimated GFR 55 ml/min 08/19/18 05:35 BUN/Creatinine Ratio 9 % 08/19/18 05:35 Glucose 108 mg/dL (75-100) H 08/19/18 05:35 POC Glucose 101 (70-105) 08/19/18 08:13 Calcium 9.0 mg/dL (8.4-10.2) 08/19/18 05:35 Total Bilirubin 1.10 mg/dL (0.1-1.2) 08/19/18 05:35 AST 206 units/L (5-40) H 08/19/18 05:35 ALT 45 units/L (7-56) 08/19/18 05:35 Alkaline Phosphatase 61 units/L (35-129) 08/19/18 05:35 Total Creatine Kinase 1778 units/L (55-170) H 08/19/18 05:35 CK-MB (CK-2) 49.4 ng/mL (0.0-4.0) H 08/19/18 05:35 CK-MB (CK-2) Rel Index 2.7 (0-4) 08/19/18 05:35 Troponin T 3.990 ng/mL (0.00-0.029) H* D 08/19/18 05:35 NT-Pro-B Natriuret Pep 1755 pg/mL (0-900) H 08/18/18 01:43 Total Protein 6.7 g/dL (6.3-8.2) 08/19/18 05:35 Albumin 3.8 g/dL (3.9-5) L 08/19/18 05:35 Albumin/Globulin Ratio 1.3 % 08/19/18 05:35 Triglycerides 74 mg/dL (2-149) 08/17/18 23:24 Cholesterol 209 mg/dL (50-199) H 08/17/18 23:24 LDL Cholesterol Direct 140 mg/dL (50-130) H 08/17/18 23:24 HDL Cholesterol 60 mg/dL (40-59) H 08/17/18 23:24 Cholesterol/HDL Ratio 3.48 % 08/17/18 23:24 Blood Type O POSITIVE 08/18/18 02:14 Antibody Screen Negative 08/18/18 02:14 Active Medications - Current Medications Current Medications: Generic Name Dose Route Start Last Admin Trade Name Freq PRN Reason Stop Dose Admin Acetaminophen 650 mg 08/18/18 03:36 Tylenol PO Q4H PRN Pain MILD(1-3)/Fever >100.5/BROWN Aspirin 81 mg 08/18/18 10:00 08/19/18 09:59 Baby Aspirin PO 81 mg QDAY EDIN Administration Atorvastatin Calcium 80 mg 08/18/18 22:00 08/18/18 21:01 Lipitor PO 80 mg QHS EDIN Administration Clopidogrel Bisulfate 75 mg 08/19/18 10:00 08/19/18 09:59 Plavix PO 75 mg QDAY EDIN Administration Enoxaparin Sodium 40 mg 08/18/18 10:00 08/19/18 09:58 Lovenox SUB-Q 40 mg QDAY@1000 EDIN Administration Losartan Potassium 50 mg 08/18/18 12:00 08/19/18 09:59 Cozaar PO 50 mg QDAY EDIN Administration Metoprolol Tartrate 50 mg 08/18/18 10:00 08/18/18 21:01 Lopressor PO 50 mg BID EDIN Administration Morphine Sulfate 2 mg 08/18/18 03:36 Morphine IV Q4H PRN Pain, Moderate (4-6) Ondansetron HCl 4 mg 08/18/18 03:36 08/18/18 04:42 Zofran IV 4 mg Q4H PRN Administration Nausea And Vomiting Sodium Chloride 10 ml 08/18/18 10:00 08/18/18 21:01 Sodium Chloride Flush Syringe 10 Ml IV 10 ml BID EDIN Administration Sodium Chloride 10 ml 08/18/18 03:36 Sodium Chloride Flush Syringe 10 Ml IV PRN PRN LINE FLUSH Tramadol HCl 50 mg 08/18/18 03:36 Ultram PO Q4H PRN Pain, Mild (1-3)
[2018-08-19] MEDS ORDERED: COZAAR PO SCH (12:00)
--- NOTE | 2018-08-19 12:19 | Progress Note ---
Assessment and Plan Patient is on losartan 25 mg Lopressor 50 twice a day aspirin Plavix statin patient is walking around without any chest pain shortness of breath echocardiogram does reveal moderate LV dysfunction no Aldactone secondary to lower blood pressure and mild renal insufficiency patient wants to go home advise about restriction from vigorous activity and slowly to build up follow-up in the office in one week - Patient Problems (1) Acute systolic CHF (congestive heart failure), NYHA class 3 Current Visit: Yes Status: Acute (2) Acute respiratory failure Current Visit: Yes Status: Acute Qualifiers: Respiratory failure complication: hypoxia Qualified Code(s): J96.01 - Acute respiratory failure with hypoxia (3) Hyperlipemia, mixed Current Visit: Yes Status: Chronic (4) NSTEMI (non-ST elevation myocardial infarction) Current Visit: Yes Status: Acute (5) Acute renal insufficiency Current Visit: Yes Status: Acute Subjective Date of service: 08/19/18 Principal diagnosis: nstemi Interval history: Patient states walking around without any chest pain or shortness of breath Objective Vital Signs Temp Pulse Pulse Resp BP Pulse Ox 08/19/18 11:58 98.7 F 99 H 20 90/61 96 08/19/18 08:11 99.2 F 20 96/58 08/19/18 05:53 90 08/19/18 04:17 99.2 F 89 19 102/65 94 08/18/18 23:24 98.0 F 89 12 100/67 97 08/18/18 22:00 94 H 08/18/18 19:29 98.6 F 98 H 16 116/76 96 08/18/18 17:08 94 08/18/18 16:00 82 20 99 08/18/18 15:38 98.7 F 89 20 112/79 94 08/18/18 13:41 111/74 97 08/18/18 13:31 111/74 96 08/18/18 13:15 111/74 95 08/18/18 13:00 111/74 97 08/18/18 12:45 95 H 21 96/65 96 08/18/18 12:31 94 H 19 96/65 96 - Physical Examination General: Appears Well HEENT: Positive: PERRL, Mucus Membranes Moist Neck: Positive: neck supple, trachea midline Cardiac: Positive: Reg Rate and Rhythm Lungs: Positive: clear to auscultation Neuro: Positive: Grossly Intact Abdomen: Positive: Soft, Active Bowel Sounds. Negative: Tender, Distended Skin: Positive: Clear Incision: Cardiac Cath Site (no hematoma or bleeding) Musculoskeletal: No Pain, Normal Range of Motion Extremities: Present: normal. Absent: edema - Labs and Meds Cardiac Enzymes 08/19/18 Range/Units 05:35 AST 206 H (5-40) units/L CK-MB (CK-2) 49.4 H (0.0-4.0) ng/mL CBC 08/19/18 Range/Units 05:35 WBC 11.8 H (4.5-11.0) K/mm3 RBC 4.74 (3.65-5.03) M/mm3 Hgb 14.8 (11.8-15.2) gm/dl Hct 44.1 (35.5-45.6) % Plt Count 226 (140-440) K/mm3 Lymph # 2.6 (1.2-5.4) K/mm3 [place] # 1.3 H (0.0-0.8) K/mm3 Eos # 0.1 (0.0-0.4) K/mm3 Baso # 0.0 (0.0-0.1) K/mm3 Comprehensive Metabolic Panel 08/19/18 Range/Units 05:35 Sodium 139 (137-145) mmol/L Potassium 4.3 (3.6-5.0) mmol/L Chloride 99.6 (98-107) mmol/L Carbon Dioxide 28 (22-30) mmol/L BUN 15 (9-20) mg/dL Creatinine 1.6 H (0.8-1.5) mg/dL Glucose 108 H (75-100) mg/dL Calcium 9.0 (8.4-10.2) mg/dL AST 206 H (5-40) units/L ALT 45 (7-56) units/L Alkaline Phosphatase 61 (35-129) units/L Total Protein 6.7 (6.3-8.2) g/dL Albumin 3.8 L (3.9-5) g/dL - Imaging and Cardiology EKG: image reviewed Echo: report reviewed (moderate LV dysfunction with apical anterior, apical septal hypokinesis mild to moderate tricuspid regurgitation, RVSP mild MR no AI) Cardiac cath: report reviewed (Left heart cath revealed left main patent LAD mid 99% with NIKO 2 flow down to 1 ostial 80% diagonal 2 and 3 patent circumflex patent obtuse marginal 1 and obtuse marginal 2 patent RCA patent with moderate LV dysfunction and anterior wall hypokinesis EF 35-40% PCI of the LAD with a drug-eluting xience 3.0 x 33 mm postdilated with 3 5 x 15 mm 2 intravascular sounds revealed excellent result was stent was well opposed and expanded. ) - Telemetry EKG Rhythm: Sinus Rhythm (no V. tach) - EKG Sinus rhythms and dysrhythmias: sinus rhythm (08/18/2018 nsr aneursymal anterior wall mi )
--- NOTE | 2018-08-19 12:56 | Progress Note ---
Assessment and Plan NSTEMI s/p PCI Tobacco use disorder Acute systolic heart failure, NYHA class III. Hyperlipidemia. -Cardioprotective measures -Antiplatelet therapy -Heart failure measures -Statin therapy -Cardiac diet, ambulate -Smoking cessation counselling done at the bedside -Discharge planning per Cardiology/Primary service Discussed the need for medical compliance with the patient. Life style modifications discussed. He verbalized understanding and all his questions were answered. Subjective Date of service: 08/19/18 Principal diagnosis: nstemi Interval history: Follow up: NSTEMI s/p PCI; Tobacco use disorder; Heart failure Seen and examined. No acute overnight events; Remains chest pain free, no shortness of breath, no nausea, no vomiting. No fevers or chills; ambulatory Objective - Exam Narrative Exam: General Apperance: The patient lying in bed, breathing comfortable HEENT: Normocephalic, atraumatic. Pupils equally round and reactive to light, EOMI, no sclericterus or JVD or thyromegaly or nodule. , no carotid bruit, mucous membranes moist, no exudate or erythema Heart: S1-S2, regular is rhythm Lungs: Clear to auscultation bilaterally, breathing comfortable Abdomen: Positive bowel sounds, soft, nontender, nondistended, no organomegaly Extremities: No edema cyanosis clubbing Skin: no rash, nodule, warm and dry Neuro: cranial nerves 2-12 intact, speech is fluent, motor/sensory intact Vital Signs - 12hr 08/19/18 08/19/18 08/19/18 04:17 05:53 08:11 Temperature 99.2 F 99.2 F Pulse Rate 89 90 Respiratory 19 20 Rate Blood Pressure 102/65 96/58 O2 Sat by Pulse 94 Oximetry 08/19/18 11:58 Temperature 98.7 F Pulse Rate 99 H Respiratory 20 Rate Blood Pressure 90/61 O2 Sat by Pulse 96 Oximetry CBC and BMP: 08/19/18 05:35 08/19/18 05:35 ABG, PT/INR, D-dimer: PT/INR, D-dimer PT 14.2 Sec. (12.2-14.9) 08/18/18 02:14 INR 1.04 (0.87-1.13) 08/18/18 02:14 Abnormal lab findings: Abnormal Labs 03/22/19 03/22/19 03/23/19 23:24 23:24 01:39 WBC 13.2 H Hgb 15.5 H Hct 46.5 H RDW 13.0 L Lymph % (Auto) 13.2 L [place] % (Auto) [place] # 1.0 H Seg Neutrophils % 78.7 H Seg Neutrophils # 10.4 H Creatinine Glucose 127 H AST Total Creatine Kinase 551 H CK-MB (CK-2) 41.8 H CK-MB (CK-2) Rel Index 7.5 H Troponin T 0.455 H* 0.504 H* NT-Pro-B Natriuret Pep Albumin Cholesterol 209 H LDL Cholesterol Direct 140 H HDL Cholesterol 60 H 08/18/18 08/18/18 08/19/18 01:43 05:24 05:35 WBC 11.8 H Hgb Hct RDW Lymph % (Auto) [place] % (Auto) 11.4 H [place] # 1.3 H Seg Neutrophils % Seg Neutrophils # 7.8 H Creatinine Glucose AST Total Creatine Kinase CK-MB (CK-2) CK-MB (CK-2) Rel Index Troponin T 19.640 H* D NT-Pro-B Natriuret Pep 1755 H Albumin Cholesterol LDL Cholesterol Direct HDL Cholesterol 08/19/18 05:35 WBC Hgb Hct RDW Lymph % (Auto) [place] % (Auto) [place] # Seg Neutrophils % Seg Neutrophils # Creatinine 1.6 H Glucose 108 H AST 206 H Total Creatine Kinase 1778 H CK-MB (CK-2) 49.4 H CK-MB (CK-2) Rel Index Troponin T 3.990 H* D NT-Pro-B Natriuret Pep Albumin 3.8 L Cholesterol LDL Cholesterol Direct HDL Cholesterol
--- NOTE | 2018-08-19 14:51 | Discharge Summary ---
Providers - Providers Date of Admission: 08/18/18 03:33 Date of discharge: 08/19/18 Attending physician: CATERINA MAYERS 08/18/18 Consult to Cardiac Rehabilitation [CONS] Routine Reason For Exam: post pci 08/18/18 03:36 Consult to Physician [CONS] Routine Comment: Consulting Provider: PATRICIA ECHAVARRIA Physician Instructions: Reason For Exam: cc 08/18/18 03:39 Consult to Physician [CONS] Routine Comment: Consulting Provider: VALERIANO LAWRENCE Physician Instructions: Reason For Exam: acs Primary care physician: [facility], Hospitalization Reason for admission: Chest pain Condition: Good Hospital course: 57-year-old male with past medical history of premature CAD mother had a stent below the age of 60 from an ID who was recently released from [place] 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 Cardiac enzymes revealed an acute coronary syndrome despite treatment with morphine and nitroglycerin patient was having chest pain so patient was brought emergently to the [facility] for recurrent chest pain despite medical treatment for acute coronary syndrome. Left heart cath revealed left main patent LAD mid 99% with NIKO 2 flow down to 1 ostial 80% diagonal 2 and 3 patent circumflex patent obtu se marginal 1 and obtuse marginal 2 patent RCA patent with moderate LV dysfunction and anterior wall hypokinesis EF 35-40% PCI of the LAD with a drug- eluting xience 3.0 x 33 mm postdilated with 3 5 x 15 mm 2 intravascular sounds revealed excellent result was stent was well opposed and expanded. Patient patient was later transferred to the floor and continued with medical treatment. Echocardiogram does reveal moderate LV dysfunction. The patient will be treated with losartan 25 mg Lopressor 50 twice a day aspirin Plavix statin. The patient is ammulating pain-free today With no shortness of breath. The patient will not be discharged with Aldactone secondary to lower blood pressure and mild renal insufficiency. 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 Dedicated discharge time 32 minutes Disposition: [id number] TO HOME OR SELFCARE Time spent for discharge: 32 - Discharge Diagnoses (1) NSTEMI (non-ST elevated myocardial infarction) Status: Acute (2) Acute renal insufficiency Status: Acute (3) Acute respiratory failure Status: Acute Qualifiers: Respiratory failure complication: hypoxia Qualified Code(s): J96.01 - Acute respiratory failure with hypoxia (4) Acute systolic CHF (congestive heart failure), NYHA class 3 Status: Acute (5) Chest pain Status: Acute Qualifiers: Chest pain type: unspecified Qualified Code(s): R07.9 - Chest pain, unspecified (6) Elevated troponin Status: Acute (7) NSTEMI (non-ST elevation myocardial infarction) Status: Acute Core Measure Documentation - Palliative Care Palliative Care/ Comfort Measures: Not Applicable - Core Measures Any of the following diagnoses?: acute ID, heart failure - Acute ID Discharge Requirements Aspirin at discharge: Yes TOBY/ARB for LVSD if EF <40%: Yes Beta fernando at discharge: Yes Statin for LDL = or >100 mg/dl on DC: Yes - Heart Failure Discharge Requirements TOBY/ARB for LVSD if EF <40%: Yes Beta fernando at discharge: Yes Exam - Constitutional Vitals: Temp Pulse Resp BP Pulse Ox 98.7 F 91 H 20 90/61 96 08/19/18 11:58 08/19/18 12:59 08/19/18 11:58 08/19/18 11:58 08/19/18 11:58 General appearance: Present: no acute distress, well-nourished - EENT Eyes: Present: PERRL ENT: hearing intact, clear oral mucosa - Neck Neck: Present: supple, normal ROM - Respiratory Respiratory effort: normal Respiratory: bilateral: CTA - Cardiovascular Heart Sounds: Present: S1 & S2. Absent: rub, click - Extremities Extremities: pulses symmetrical, No edema Peripheral Pulses: within normal limits - Abdominal General gastrointestinal: Present: soft, non-tender, non-distended, normal bowel sounds Male genitourinary: Present: normal - Integumentary Integumentary: Present: clear, warm, dry - Musculoskeletal Musculoskeletal: gait normal, strength equal bilaterally - Psychiatric Psychiatric: appropriate mood/affect, intact judgment & insight - Neurologic Neurologic: CNII-XII intact, moves all extremities Plan Activity: advance as tolerated Weight Bearing Status: Weight Bear as Tolerated Diet: low fat, low cholesterol, low salt [facility] [Primary Care Provider] - 3-5 Days VALERIANO LAWRENCE MD [Staff Physician] - 7 Days Prescriptions: Aspirin [Aspirin BABY CHEW TAB] 81 mg PO QDAY #30 tab.chew Losartan [Cozaar] 25 mg PO QDAY #30 tablet AtorvaSTATin [Lipitor] 80 mg PO QHS #30 tablet Metoprolol [Lopressor TAB] 50 mg PO BID #60 tablet Clopidogrel [Plavix] 75 mg PO QDAY #30 tablet
[2018-08-19 16:12] VITALS: BP 90/50
[2018-08-19] MEDS ORDERED: AFLURIA QUAD 2018-2019 SYRINGE IM ONE (16:28)
== END 2018-08-19 17:15 | disposition home or self-care (01) | DRG 246 ==
LOC: ED 22:59 → CC1 08-18 03:33 → 4A 08-18 13:55
PROVIDERS: ADMIT Internal Medicine; ATTEND Hospitalist
PROC: 4A023N7 Measurement of Cardiac Sampling and Pressure, Left Heart, Percutaneous Approach (ICD-10-PCS; principal; 2018-08-18)
PROC: 027034Z Dilation of Coronary Artery, One Artery with Drug-eluting Intraluminal Device, Percutaneous Approach (ICD-10-PCS; 2018-08-18)
PROC: B2111ZZ Fluoroscopy of Multiple Coronary Arteries using Low Osmolar Contrast (ICD-10-PCS; 2018-08-18)
PROC: B2151ZZ Fluoroscopy of Left Heart using Low Osmolar Contrast (ICD-10-PCS; 2018-08-18)
PROC: B241ZZ3 Ultrasonography of Multiple Coronary Arteries, Intravascular (ICD-10-PCS; 2018-08-18)
DX: I21.09 ST elevation (STEMI) myocardial infarction involving other coronary artery of anterior wall (principal); J96.01 Acute respiratory failure with hypoxia; I50.21 Acute systolic (congestive) heart failure; E78.2 Mixed hyperlipidemia; N28.9 Disorder of kidney and ureter, unspecified; I11.0 Hypertensive heart disease with heart failure; Z82.49 Family history of ischemic heart disease and other diseases of the circulatory system
CPT/HCPCS: 36415; 71045; 71275; 80048; 80053; 80061; 82550; 82553; 82962; 83880; 84484; 85025; 85347; 85610; 85730; 86850; 86900; 86901; 90686; 92941; 92978; 93005; 93010; 93306; 93458; 94760; 99406; G0378; A9270-GY; C1725; C1753; C1769; C1874; C1887; C1894; C9606; J1644; J1650; J2250; J2270; J2405; J3010; J7030; J7040; Q9967